=== PATIENT | female | born 1955 | race Caucasian/White ===

== ENCOUNTER → 2020-08-10 | Outpatient (CLI) | payer OTHER | LOC: EMI 08:50 | DX: C50.112 Malignant neoplasm of central portion of left female breast (principal); R90.89 Other abnormal findings on diagnostic imaging of central nervous system; N94.10 Unspecified dyspareunia; M47.813 Spondylosis without myelopathy or radiculopathy, cervicothoracic region | CPT/HCPCS: 72156; A9577 ==

== ENCOUNTER → 2020-09-13 | Outpatient (CLI) | payer OTHER | LOC: HEART 5 07-19 10:30 | DX: R94.31 Abnormal electrocardiogram [ECG] [EKG] (principal); I08.3 Combined rheumatic disorders of mitral, aortic and tricuspid valves | CPT/HCPCS: 93306 ==

== ENCOUNTER → 2020-11-04 | Outpatient (CLI) | payer OTHER | LOC: MAMO 12:30 | DX: C50.512 Malignant neoplasm of lower-outer quadrant of left female breast (principal); R92.2 Inconclusive mammogram | CPT/HCPCS: 76641-LT; 77065; G0279 ==

== ENCOUNTER → 2021-03-02 | Outpatient (CLI) | payer OTHER | LOC: OPSV 09:16 | DX: E86.0 Dehydration (principal); C50.112 Malignant neoplasm of central portion of left female breast; C50.512 Malignant neoplasm of lower-outer quadrant of left female breast; R91.8 Other nonspecific abnormal finding of lung field; R91.1 Solitary pulmonary nodule | CPT/HCPCS: 71260; 96360; 96361; Q9967 ==